=== PATIENT | male | born 1955 | race Caucasian/White ===

== ENCOUNTER 2018-09-13 07:26 | Day surgery (SDC) | payer BC ==
[2018-09-13] MEDS ORDERED: PROPOFOL 500 MG/50 ML EMU IV ONE (07:36)
[2018-09-13] MEDS ORDERED: BUPIVACAINE/EPI 0.5% 10 ML SOL INFIL ONE (07:53)
[2018-09-13] MEDS ORDERED: FENTANYL 250 MCG/ 5ML SOL ONE (07:53)
[2018-09-13] MEDS ORDERED: BUPIVACAINE LIPOSOME 20 ML SUS ONE (07:53)
[2018-09-13] MEDS ORDERED: HYDROMORPHONE 1 MG/ML SYRINGE ONE (09:26)
[2018-09-13] MEDS ORDERED: KETOROLAC TROMETHAMINE 30 MG/ML SOL ONE (09:27)
[2018-09-13 10:08] VITALS: BP 122/81; PULSE 74; RESP 18; TEMP 97.6; O2SAT 97
== END 2018-09-13 10:43 | disposition home or self-care (01) ==
LOC: SURG 07:26
PROVIDERS: ATTEND Surgery
DX: Z12.11 Encounter for screening for malignant neoplasm of colon (principal); Z86.010 Personal history of colon polyps; K57.32 Diverticulitis of large intestine without perforation or abscess without bleeding; K64.4 Residual hemorrhoidal skin tags; D12.2 Benign neoplasm of ascending colon; K62.1 Rectal polyp
CPT/HCPCS: 99001; J0330; J1885; J3010; A6402; J1170; J2704